=== PATIENT | male | born 1965 | race Caucasian/White ===

== ENCOUNTER → 2020-10-15 | Outpatient (CLI) | payer OTHER ==
[~2020-10-15] MED LIST: ALDACTONE25 MG PO; ASPIRIN325 MG PO; CONSTULOSE10 GM/15 M PO; KEFLEX CAP 500500 MG PO; OXYCODONE HCL10 MG PO; OXYCODONE HCL5 MG PO; VITAMIN C 500500 MG PO; VITAMIN D10000 UNIT PO; VITAMIN D350000 UNIT PO; XIFAXAN550 MG PO; ZOLOFT25 MG PO
== END ==
LOC: KOH-I 09:34
DX: S92.001D Unspecified fracture of right calcaneus, subsequent encounter for fracture with routine healing (principal)
CPT/HCPCS: 73630; 73650

== ENCOUNTER 2021-01-28 08:56 | Inpatient (IN) | payer OTHER ==
[~2021-01-28] VITALS: Ht 177.8 cm; Wt 83.7 kg
[~2021-01-28 08:56] MED LIST changes: +ULTRAM50 MG PO
[2021-01-28 10:35] LABS: HEMOGLOBIN 11.2 gm/dl (14.0-17.5); RED BLOOD COUNT 3.41 M/UL (4.20-5.50); WHITE BLOOD COUNT 13.2 K/UL (4.5-11.0)
[2021-01-28 10:55] LABS: BUN/CREATININE RATIO 30 (0-10)
[2021-01-28 15:37] LABS: HEMOGLOBIN 9.8 gm/dl (14.0-17.5); WHITE BLOOD COUNT 11.9 K/UL (4.5-11.0)
[2021-01-28 15:43] LABS: RED BLOOD COUNT 2.97 M/UL (4.20-5.50)
[2021-01-28] MEDS ORDERED: DESYREL 50 MG T50 MG PO (17:22)
[2021-01-28] MEDS ORDERED: NEURONTIN300 MG PO (17:22)
[2021-01-28] MEDS ORDERED: NORVASC5 MG PO (17:25)
[2021-01-28] MEDS ORDERED: VOLTREN XR 100100 MG PO (18:14)
[2021-01-28 21:36] LABS: HEMOGLOBIN 9.4 gm/dl (14.0-17.5)
[2021-01-29 03:50] LABS: RED BLOOD COUNT 2.42 M/UL (4.20-5.50); WHITE BLOOD COUNT 8.9 K/UL (4.5-11.0)
[2021-01-29 03:56] LABS: BUN/CREATININE RATIO 22 (0-10)
[2021-01-29 08:43] LABS: HEMOGLOBIN 8.3 gm/dl (14.0-17.5)
[2021-01-30 03:12] LABS: HEMOGLOBIN 7.9 gm/dl (14.0-17.5); RED BLOOD COUNT 2.38 M/UL (4.20-5.50); WHITE BLOOD COUNT 6.5 K/UL (4.5-11.0)
[2021-01-30] MEDS ORDERED: THERAGRAN M TAB1 EA PO (09:02)
[2021-01-30] MEDS ORDERED: FERROUS GLUCON324 M2 PO (09:02)
[2021-01-30] MEDS ORDERED: PROTONIX 40 MG40 M1 PO (09:02)
[2021-01-30 09:48] LABS: RED BLOOD COUNT 2.38 M/UL (4.20-5.50); WHITE BLOOD COUNT 6.1 K/UL (4.5-11.0)
[2021-01-30 10:04] LABS: BUN/CREATININE RATIO 13 (0-10)
== END 2021-01-30 13:00 | disposition home or self-care (01) | DRG 378 ==
LOC: ER1 08:56 → CDU 16:21 → PROG CARE 16:39 → CDU 20:20 → PROG CARE 23:48
PROVIDERS: Emergency Medicine; Internal Medicine Gastroenterology; Physician Assistant; ADMIT Internal Medicine Infectious Disease
PROC: 0DB78ZX Excision of Stomach, Pylorus, Via Natural or Artificial Opening Endoscopic, Diagnostic (ICD-10-PCS; principal; 2021-01-29 08:55)
DX: K25.4 Chronic or unspecified gastric ulcer with hemorrhage (principal); D62 Acute posthemorrhagic anemia; K26.4 Chronic or unspecified duodenal ulcer with hemorrhage; Z20.822 Contact with and (suspected) exposure to COVID-19; E87.6 Hypokalemia; K74.60 Unspecified cirrhosis of liver; D69.6 Thrombocytopenia, unspecified; F10.10 Alcohol abuse, uncomplicated; N20.0 Calculus of kidney; E83.119 Hemochromatosis, unspecified; B19.20 Unspecified viral hepatitis C without hepatic coma; Z98.890 Other specified postprocedural states; Z81.8 Family history of other mental and behavioral disorders; Z79.899 Other long term (current) drug therapy
CPT/HCPCS: 36415; 71045; 80048; 80053; 81001; 82270; 83690; 85014; 85018; 85025; 85610; 85730; 86850; 86900; 86901; 96365; 96366; 99284; C9113; J2354; J2704; J2765; J7030; J7040; Q9967; U0002

== ENCOUNTER → 2021-07-15 | Outpatient (CLI) | payer OTHER ==
[~2021-07-15] MED LIST changes: +CRESTOR20 MG PO; +DESYREL 50 MG T50 MG PO; +FERROUS GLUCON324 M2 PO; +FUROSEMIDE20 MG PO; +NEURONTIN300 MG PO; +NORVASC5 MG PO; +PROTONIX 40 MG40 M1 PO; +SPIRONOLACTONE50 MG PO; +THERAGRAN M TAB1 EA PO; +VOLTREN XR 100100 MG PO
== END ==
LOC: OPSV 09:56
DX: K70.31 Alcoholic cirrhosis of liver with ascites (principal); K44.9 Diaphragmatic hernia without obstruction or gangrene
CPT/HCPCS: G0463

== ENCOUNTER → 2021-07-17 | Day surgery (SDC) | payer OTHER | END | disposition home or self-care (01) | LOC: OR 06:04 | DX: K76.6 Portal hypertension (principal); K31.89 Other diseases of stomach and duodenum; K29.50 Unspecified chronic gastritis without bleeding; K25.3 Acute gastric ulcer without hemorrhage or perforation; K22.70 Barrett's esophagus without dysplasia; I85.00 Esophageal varices without bleeding; K70.31 Alcoholic cirrhosis of liver with ascites; F10.11 Alcohol abuse, in remission; E66.3 Overweight; Z72.0 Tobacco use; Z20.822 Contact with and (suspected) exposure to COVID-19 | CPT/HCPCS: J2704; J7040 ==

== ENCOUNTER 2021-08-17 10:18 | Emergency (ER) | payer OTHER ==
[2021-08-17 11:21] LABS: HEMOGLOBIN 14.1 gm/dl (14.0-17.5); RED BLOOD COUNT 4.57 M/UL (4.20-5.50); WHITE BLOOD COUNT 8.1 K/UL (4.5-11.0)
== END 2021-08-17 13:16 | disposition home or self-care (01) ==
LOC: ER1 10:18
PROVIDERS: Nurse Practitioner
DX: K74.60 Unspecified cirrhosis of liver (principal); R18.8 Other ascites
CPT/HCPCS: 80053; 81001; 85025; 87086; 99284

== ENCOUNTER → 2021-08-19 | Outpatient (CLI) | payer OTHER ==
[~2021-08-19] MED LIST changes: +DOXYCYCLINE HY100 MG PO
== END | disposition home or self-care (01) ==
LOC: OPSV 09:26
PROVIDERS: Internal Medicine Gastroenterology
DX: K70.31 Alcoholic cirrhosis of liver with ascites (principal); Z53.8 Procedure and treatment not carried out for other reasons
CPT/HCPCS: 80048; 87521

== ENCOUNTER → 2021-10-07 | Outpatient (CLI) | payer OTHER ==
[~2021-10-07] VITALS: Ht 182.9 cm; Wt 92.5 kg
== END | disposition home or self-care (01) ==
LOC: OPSV 10:00
DX: K70.31 Alcoholic cirrhosis of liver with ascites (principal); K42.9 Umbilical hernia without obstruction or gangrene; Z53.09 Procedure and treatment not carried out because of other contraindication
CPT/HCPCS: 82728; 83540; 83550